=== PATIENT | female | born 1955 | race Caucasian/White ===

== ENCOUNTER → 2021-04-20 | Outpatient (CLI) | payer BC ==
[~2021-04-20] MED LIST: CORGARD20 MG PO; CRUTCH3 XX; Norco 5-325 Ta1 EACH PO; TRAZ100 PO; Zofran Odt4 MG SL
== END | disposition home or self-care (01) ==
LOC: LAB 11:11 → LAB SHORT 11:11
DX: D22.5 Melanocytic nevi of trunk (principal)
CPT/HCPCS: 88305

== ENCOUNTER 2025-01-27 08:40 | Day surgery (SDC) | payer OTHER ==
[~2025-01-27] VITALS: Ht 157.5 cm; Wt 59.8 kg
[~2025-01-27 08:40] MED LIST changes: +ALEN10; +ALEN70; +Lactated Ringer's 1,000 ML IV ONE; +Nadolol20 MG PO; +propofoL 50 ML IV ONE
[2025-01-27] MEDS ORDERED: Lactated Ringer's 1,000 ML IV ONE (09:44)
[2025-01-27 14:29] VITALS: BP 117/76
== END 2025-01-27 11:20 | disposition home or self-care (01) ==
LOC: ORSCSDS 08:40
PROVIDERS: Internal Medicine Gastroenterology
PROC: 0DBL8ZX Excision of Transverse Colon, Via Natural or Artificial Opening Endoscopic, Diagnostic (ICD-10-PCS; principal; 2025-01-27 10:00)
PROC: 0DBN8ZX Excision of Sigmoid Colon, Via Natural or Artificial Opening Endoscopic, Diagnostic (ICD-10-PCS; principal; 2025-01-27 10:00)
PROC: 0DBM8ZX Excision of Descending Colon, Via Natural or Artificial Opening Endoscopic, Diagnostic (ICD-10-PCS; principal; 2025-01-27 10:00)
PROC: 0DBH8ZX Excision of Cecum, Via Natural or Artificial Opening Endoscopic, Diagnostic (ICD-10-PCS; principal; 2025-01-27 10:00)
DX: Z12.11 Encounter for screening for malignant neoplasm of colon (principal); D12.0 Benign neoplasm of cecum; D12.3 Benign neoplasm of transverse colon; K63.5 Polyp of colon; K64.4 Residual hemorrhoidal skin tags; Z86.0101 Personal history of adenomatous and serrated colon polyps; I10 Essential (primary) hypertension; J44.9 Chronic obstructive pulmonary disease, unspecified; G47.33 Obstructive sleep apnea (adult) (pediatric); Z79.899 Other long term (current) drug therapy; Z87.891 Personal history of nicotine dependence
CPT/HCPCS: 88305; J2704; J7120